=== PATIENT | female | born 1940 | race Caucasian/White ===

== ENCOUNTER 2016-03-24 16:39 | Emergency (ER) | payer OTHER, BC ==
[~2016-03-24] VITALS: Ht 152.4 cm; Wt 65.9 kg
[~2016-03-24 16:39] MED LIST: ASPIRIN325 MG PO; CARDIZEM60 MG PO; LIPITOR20 MG PO; METOPROLOL SUC100 MG PO; PRAVACHOL10 MG PO; PRILOSEC20 MG PO; SENNA PLUS TAB1 EACH PO
[2016-03-24 17:26] LABS: MCH 31.2 PG (29.0-34.0); MCHC 33.9 G/DL (30.0-36.0); MCV 92.1 FL (83-99); MEAN PLAT.VOLUME 10.3 uM^3 (9.5-12.4); PLATELET COUNT 254 K/uL (156-360); RBC DIS.WIDTH-CV 11.6 % (11.8-14.6); RBC DIS.WIDTH-SD 38.5 % (39-53); RED BLOOD COUNT 4.45 M/uL (3.80-5.20); WHITE BLOOD COUNT 11.5 K/uL (4.1-10.2)
[2016-03-24] MEDS ORDERED: PRADAXA150 MG PO (17:35)
[2016-03-24 17:39] LABS: CHLORIDE 105 mEq/L (99-109); SODIUM 139 mEq/L (136-147)
[2016-03-24 17:40] LABS: GLUCOSE 112 mg/dL (70-99)
[2016-03-24 17:42] LABS: ANION GAP 10 MEQ/L (2-14)
[2016-03-24 17:44] LABS: GFR ESTIMATE (CALCULATED) > 59 mL/min/
[2016-03-24 17:45] LABS: UREA NITROGEN (BUN) 14 mg/dL (9-23)
[2016-03-24 20:53] VITALS: BP 122/76
== END 2016-03-24 21:55 | disposition home or self-care (01) ==
LOC: EME 16:39
DX: S01.01XA Laceration without foreign body of scalp, initial encounter (principal); W19.XXXA Unspecified fall, initial encounter; Y92.002 Bathroom of unspecified non-institutional (private) residence as the place of occurrence of the external cause; Z86.73 Personal history of transient ischemic attack (TIA), and cerebral infarction without residual deficits; Z86.718 Personal history of other venous thrombosis and embolism
CPT/HCPCS: 70450; 70486; 71020; 72125; 80048; 85027; 93005; 99281; 99285

== ENCOUNTER 2016-10-18 10:02 | Observation (INO) | payer OTHER, BC ==
[~2016-10-18] VITALS: Ht 152.4 cm; Wt 72.3 kg
[~2016-10-18 10:02] MED LIST changes: +PRADAXA150 MG PO
[2016-10-18 10:32] LABS: EOSINOPHIL (%) 1.1 % (0-5); EOSINOPHIL COUNT 0.1 K/uL (0-0.3); HEMATOCRIT 41.1 % (36.0-46.0); IMMATURE GRANULOCYTE (%) 0.9 % (0.0-0.7); IMMATURE GRANULOCYTE COUNT 0.1 K/uL; INSTRUMENT ABS NEUTROPHIL CT 5.2 K/uL; LYMPHOCYTE COUNT 2.1 K/uL (1.0-2.8); MCH 31.5 PG (29.0-34.0); MCHC 33.1 G/DL (30.0-36.0); MCV 95.1 FL (83-99); MONOCYTE (%) 5.9 % (3-12); MONOCYTE COUNT 0.5 K/uL (0-0.8); NEUTROPHIL (%) 65.5 % (45-76); NEUTROPHIL COUNT 5.2 K/uL (1.8-6.4); PLATELET COUNT 265 K/uL (156-360); RBC DIS.WIDTH-CV 11.6 % (11.8-14.6); RBC DIS.WIDTH-SD 40.4 % (39-53); RED BLOOD COUNT 4.32 M/uL (3.80-5.20)
[2016-10-18 10:42] LABS: CHLORIDE 104 mEq/L (99-109); POTASSIUM 3.6 mEq/L (3.7-5.4); SODIUM 139 mEq/L (136-147)
[2016-10-18 10:43] LABS: INTER. NORMALIZED RATIO 1.3; PROTHROMBIN TIME 14.4 SEC (10.2-12.9)
[2016-10-18 10:44] LABS: GLUCOSE 113 mg/dL (70-99)
[2016-10-18 10:45] LABS: ANION GAP 14 MEQ/L (2-14); TOTAL BILIRUBIN 0.7 mg/dL (0.0-1.0)
[2016-10-18 10:46] LABS: PTT 53.1 SEC (25-37)
[2016-10-18 10:47] LABS: ALKALINE PHOSPHATASE 109 IU/L (3-129); GFR ESTIMATE (CALCULATED) > 59 mL/min/
[2016-10-18 10:48] LABS: UREA NITROGEN (BUN) 17 mg/dL (9-23)
[2016-10-18 10:49] LABS: DIRECT BILIRUBIN 0.2 mg/dL (0.0-0.3)
[2016-10-18 10:51] LABS: LIPASE 23 U/L (1.0-51.0)
[2016-10-18 10:53] LABS: TROP-I INTERPRETATION NEGATIVE; TROPONIN-I < 0.01 ng/mL (0.0-0.30)
[2016-10-18 10:55] LABS: CREATINE KINASE 63 IU/L (1-294); TOTAL CK 63 IU/L (1-294)
[2016-10-18 11:01] LABS: CK-MB 1.9 ng/mL (0.0-4.9)
[2016-10-18] MEDS ORDERED: VITAMIN D31000 UNI2 PO (13:55)
[2016-10-18] MEDS ORDERED: METOPROLOL SUC100 MG PO (13:55)
[2016-10-18 15:04] LABS: ADD MIUA? YES; BILIRUBIN NEGATIVE; BLOOD NEGATIVE; COLOR YELLOW ((YELLOW)); GLUCOSE (STRIP) NEGATIVE; KETONES NEGATIVE; LEUKOCYTES TRACE; NITRITE NEGATIVE; PROTEIN (STRIP) NEGATIVE; SPECIFIC GRAVITY 1.016 (1.000-1.030); UROBILINOGEN 0.2 MG/DL (0.2-1.0)
[2016-10-18 15:09] LABS: BACTERIA NONE SEEN /HPF; EPITHELIAL CELLS RARE /HPF; MUCUS NONE SEEN /LPF; RED BLOOD CELLS 0-5 /HPF (0-5); UCUL ADDED? NO; WHITE BLOOD CELLS 0-5 /HPF (0-5)
[2016-10-18 15:19] LABS: D-DIMER ELISA ND ng/mLDDU (<230)
[2016-10-18 15:53] VITALS: BP 134/70
[2016-10-18 17:13] LABS: TROP-I INTERPRETATION NEGATIVE; TROPONIN-I < 0.01 ng/mL (0.0-0.30)
[2016-10-18 20:00] VITALS: BP 122/58
[2016-10-18 22:59] LABS: TROP-I INTERPRETATION NEGATIVE; TROPONIN-I < 0.01 ng/mL (0.0-0.30)
[2016-10-19] VITALS (7 sets, daily range): BP systolic 85–120; BP diastolic 44–63
[2016-10-19 13:29] LABS: HDL CHOLESTEROL 54 MG/DL (Desirable>=50); LDL CHOLESTEROL 136 mg/dL (Desirable<100); NON-HDL CHOLESTEROL 158 mg/dL (Desirable<160); TOTAL CHOLESTEROL 212 mg/dL (Desirable<200); TRIGLYCERIDES 108 MG/DL (Normal: <150)
[2016-10-19 13:41] LABS: Estimated Average Glucose 97 mg/dL (70-123)
[2016-10-20 04:40] VITALS: BP 111/52
[2016-10-20 06:32] LABS: EOSINOPHIL (%) 1.6 % (0-5); EOSINOPHIL COUNT 0.1 K/uL (0-0.3); HEMATOCRIT 35.5 % (36.0-46.0); IMMATURE GRANULOCYTE (%) 0.4 % (0.0-0.7); INSTRUMENT ABS NEUTROPHIL CT 3.9 K/uL; MCH 31.6 PG (29.0-34.0); MCHC 33.2 G/DL (30.0-36.0); MCV 94.9 FL (83-99); MONOCYTE (%) 9.1 % (3-12); MONOCYTE COUNT 0.6 K/uL (0-0.8); NEUTROPHIL (%) 58.4 % (45-76); NEUTROPHIL COUNT 3.9 K/uL (1.8-6.4); PLATELET COUNT 213 K/uL (156-360); RBC DIS.WIDTH-CV 11.6 % (11.8-14.6); RBC DIS.WIDTH-SD 40.3 % (39-53); RED BLOOD COUNT 3.74 M/uL (3.80-5.20); WHITE BLOOD COUNT 6.7 K/uL (4.1-10.2)
[2016-10-20 07:00] LABS: ANION GAP 8 MEQ/L (2-14); CHLORIDE 106 MEQ/L (99-109); GFR ESTIMATE (CALCULATED) > 59 mL/min/; GLUCOSE 96 mg/dL (70-99); POTASSIUM 3.9 MEQ/L (3.7-5.4); SAMPLE HEMOLYSIS CHECK 0; SAMPLE ICTERIC CHECK 0; SAMPLE LIPEMIA CHECK 0; SODIUM 139 MEQ/L (136-147); UREA NITROGEN (BUN) 13 mg/dL (9-23)
[2016-10-20 07:23] VITALS: BP 94/42
[2016-10-20 11:43] VITALS: BP 99/51
[2016-10-20 16:13] VITALS: BP 102/53
[2016-10-20] MEDS ORDERED: ATORVASTATIN CA40 MG PO (16:37)
[2016-10-20] MEDS ORDERED: ASPIR-LOW81 MG PO (16:37)
[2016-10-20] MEDS ORDERED: METOPROLOL SUC100 MG PO (16:37)
[2016-10-20] MEDS ORDERED: LEVETIRACETAM500 MG PO (16:37)
== END 2016-10-20 17:59 | disposition home or self-care (01) ==
LOC: EME 10:02 → EDOF 13:39 → 5WEST 13:39 → ENRESERV 13:51 → 5WEST 15:40
PROVIDERS: Emergency Medicine; Internal Medicine
DX: I63.9 Cerebral infarction, unspecified (principal); R55 Syncope and collapse; M25.561 Pain in right knee; G93.89 Other specified disorders of brain; I48.91 Unspecified atrial fibrillation; I10 Essential (primary) hypertension; R47.01 Aphasia; Z79.01 Long term (current) use of anticoagulants; Z91.81 History of falling; Z86.73 Personal history of transient ischemic attack (TIA), and cerebral infarction without residual deficits; R53.83 Other fatigue; R53.1 Weakness; E87.2 Acidosis; I49.5 Sick sinus syndrome; Z88.0 Allergy status to penicillin
CPT/HCPCS: 70450; 70551; 71010; 71275; 72070; 72100; 80048; 80061; 80076; 81003; 82550; 82550 91; 82553; 83036; 83605; 83690; 83880; 84484; 85025; 85379; 85610; 85730; 87040; 93005; 95819; 97530 GO; 99281; 99284; G0378; G8978 GP CJ; G8979 GP CH; G8987 CK; G8988 GO CJ